=== PATIENT | male | born 1970 | race Caucasian/White ===

== ENCOUNTER 2023-10-07 03:46 | Emergency (ER) | payer OTHER ==
[~2023-10-07] VITALS: Ht 193 cm; Wt 142.8 kg
[2023-10-07 03:57] VITALS: BP 135/90; PULSE 89; RESP 16; TEMP 98.2; O2SAT 95
== END 2023-10-07 07:13 | disposition home or self-care (01) ==
LOC: ER 03:48
DX: R42 Dizziness and giddiness (principal); R09.89 Other specified symptoms and signs involving the circulatory and respiratory systems; Z77.098 Contact with and (suspected) exposure to other hazardous, chiefly nonmedicinal, chemicals
CPT/HCPCS: 99283